=== PATIENT | male | born 1990 | race African-American/Black ===

== ENCOUNTER 2019-06-30 16:30 | Emergency (ER) | payer SELFPAY ==
[2019-06-30 16:35] VITALS: BP 129/71
[2019-06-30] MEDS ORDERED: CEFTRIAXONE INJ 250 MG VIAL IM ONE (16:50)
[2019-06-30] MEDS ORDERED: LIDOCAINE 1% INJ (10 MG/ML) 10 ML MDV INJ ONE (16:51)
[2019-06-30] MEDS ORDERED: AZITHROMYCIN 1 GM SUSP PACKET PO ONE (16:51)
[2019-06-30] MEDS ORDERED: METRONIDAZOLE 500 MG TABLET PO ONE (16:52)
--- NOTE | 2019-06-30 16:55 | ER Document Report ---
HPI - HPI Patient complains to provider of: penile discharge Time Seen by Provider: 06/30/19 16:45 Onset: Other - 4 days Onset/Duration: Waxing and waning Quality of pain: Burning Pain Level: 1 Context: Patient reports some penile discharge with ejaculating that appears to be blood- tinged. Patient states this happened 4 days ago and then again today. Patient concerned about possible STD. Patient denies any dysuria although does report frequency. Associated Symptoms: denies: Fever Exacerbated by: Denies Relieved by: Denies Similar symptoms previously: No Recently seen / treated by doctor: No - ROS ROS below otherwise negative: Yes Systems Reviewed and Negative: Yes All other systems reviewed and negative - CONSTITUTIONAL Constitutional: DENIES: Fever - GASTROINTESTINAL Gastrointestinal: DENIES: Abdominal Pain, Nausea - URINARY Urinary: REPORTS: Frequency. DENIES: Dysuria, Urgency Notes: Penile discharge - REPRODUCTIVE Reproductive: REPORTS: Abnormal bleeding / discharge - MUSCULOSKELETAL Musculoskeletal: DENIES: Back Pain - DERM Skin Color: Normal Skin Problems: None Past Medical History - General Information source: Patient - Social History Smoking Status: Never Smoker Frequency of alcohol use: None Drug Abuse: Marijuana Family History: Reviewed & Not Pertinent - Medical History Medical History: Negative Surgical Hx: Negative Vertical Provider Document - CONSTITUTIONAL Agree With Documented VS: Yes Exam Limitations: No Limitations General Appearance: WD/WN, No Apparent Distress - HEENT HEENT: Atraumatic, Normocephalic - NECK Neck: Normal Inspection, Supple - RESPIRATORY Respiratory: Breath Sounds Normal, No Respiratory Distress - CARDIOVASCULAR Cardiovascular: Regular Rate, Regular Rhythm - GI/ABDOMEN Gastrointestinal: Abdomen Soft, Abdomen Non-Tender - REPRODUCTIVE Male Genitalia: Normal Inspection Notes: No noted discharge, normal cremasteric reflex, no testicular tenderness, no inguinal lymphadenopathy - BACK Back: Normal Inspection. negative: CVA Tenderness-Right, CVA Tenderness-Left - MUSCULOSKELETAL/EXTREMETIES Musculoskeletal/Extremeties: MAEW, FROM - NEURO Level of Consciousness: Awake, Alert, Appropriate Motor/Sensory: No Motor Deficit - DERM Integumentary: Warm, Dry, No Rash Course - Vital Signs Vital signs: Temp Pulse Resp BP Pulse Ox 98.9 F 79 16 129/71 H 100 06/30/19 16:33 06/30/19 16:33 06/30/19 16:33 06/30/19 16:33 06/30/19 16:33 Discharge - Discharge Clinical Impression: Concern about STD in male without diagnosis UTI (urinary tract infection) Qualifiers: Urinary tract infection type: site unspecified Hematuria presence: with hematuria Qualified Code(s): N39.0 - Urinary tract infection, site not specified; R31.9 - Hematuria, unspecified Condition: Stable Disposition: HOME, SELF-CARE Instructions: Azithromycin ([facility]), Metronidazole ([facility]), Rocephin ([facility]), Trimethoprim-Sulfa ([facility]), Urinary Tract Infection ([facility]) Additional Instructions: Return immediately for any new or worsening symptoms Followup with your primary care provider, call tomorrow to make a followup appointment Culture is pending, we will call if you need any different treatment Prescriptions: Sulfamethoxazole/Trimethoprim [Bactrim Ds Tablet] 1 each PO BID #20 tablet [facility] - Follow up as needed
[2019-06-30 17:58] LABS: APPEARANCE,URINE CLEAR; BILIRUBIN,URINE NEGATIVE (NEGATIVE); COLOR,URINE YELLOW; GLUCOSE, URINE NEGATIVE (NEGATIVE); KETONES,URINE NEGATIVE (NEGATIVE); LEUKOCYTE ESTERASE,URINE LARGE (NEGATIVE); NITRITE,URINE NEGATIVE (NEGATIVE); PROTEIN,URINE 30 mg/dL (NEGATIVE); URINE SPECIFIC GRAVITY 1.012; UROBILINOGEN,URINE NEGATIVE mg/dL (<2.0)
[2019-06-30 19:05] LABS: CHLAM PCR DETECTED (NOT DETECT)
== END 2019-06-30 18:10 | disposition home or self-care (01) ==
LOC: ER 16:30
DX: N39.0 Urinary tract infection, site not specified (principal); R36.9 Urethral discharge, unspecified
CPT/HCPCS: 99283; 96372; 87086; 81001; 87491; 87591; Q0144; J0696

== ENCOUNTER 2019-07-10 18:08 | Emergency (ER) | payer SELFPAY ==
[2019-07-10 18:18] VITALS: BP 122/81
--- NOTE | 2019-07-10 18:23 | ER Document Report ---
ED General - General Chief Complaint: Shoulder Pain Stated Complaint: RIGHT SHOULDER PAIN Time Seen by Provider: 07/10/19 18:16 - HPI Notes: Patient is a 28-year-old male who presents to the emergency department for evaluation of right shoulder injury. He states he was trying to break down the door. He denies hitting his head or losing consciousness. No neck or back pain. No numbness or tingling to the right upper extremity. He has no history of injury to the shoulder in the past. - Related Data Allergies/Adverse Reactions: No Known Allergies Allergy (Verified 07/10/19 18:14) Home Medications: Antibiotic for chlamydia, has 3 doses left Past Medical History - General Information source: Patient - Social History Smoking Status: Current Some Day Smoker Drug Abuse: Marijuana Family History: Reviewed & Not Pertinent Patient has homicidal ideation: No Past Surgical History: Reports: Hx Orthopedic Surgery Review of Systems - Review of Systems Musculoskeletal: See HPI -: Yes All other systems reviewed and negative Physical Exam - Vital signs Vitals: Temp Pulse Resp BP Pulse Ox 98.7 F 78 18 122/81 98 07/10/19 18:14 07/10/19 18:14 07/10/19 18:14 07/10/19 18:14 07/10/19 18:14 - Notes Notes: This is a pleasant 28-year-old gentleman appears his stated age, no acute distress. Head is normocephalic and atraumatic, pupils are equal round, reactive to light. Oral mucosa is moist. Heart regular rate and rhythm, lungs are clear to auscultation bilaterally. Examination of the right upper extremity yields no obvious deformity. Patient has active and passive range of motion which is limited secondary to pain to approximately 90 degrees of abduction and flexion. Negative apprehension. Neurovascularly intact to the right upper extremity. Course - Re-evaluation Re-evalutation: 07/10/19 18:22 Patient presents to the emergency department for evaluation. He is concerned that he is dislocated his shoulder. I do not have a high suspicion for this based on his exam at this time. X-ray is ordered. Patient is stable, told to remain n.p.o. We will continue to monitor. 07/10/19 18:37 X-ray fails to reveal any signs of dislocation. Awaiting for official radiology read to rule out any smaller fractures. Patient is administered oral Percocet. Assuming negative x-ray, will send him home with a prescription strength anti- inflammatories and close follow-up. He is to return to the ED with worsening. - Vital Signs Vital signs: Temp Pulse Resp BP Pulse Ox 98.7 F 78 18 122/81 98 07/10/19 18:14 07/10/19 18:14 07/10/19 18:14 07/10/19 18:14 07/10/19 18:14 - Diagnostic Test Radiology reviewed: Image reviewed, Reports reviewed Discharge - Discharge Clinical Impression: Contusion of right shoulder Qualifiers: Encounter type: initial encounter Qualified Code(s): S40.011A - Contusion of right shoulder, initial encounter Condition: Stable Disposition: HOME, SELF-CARE Instructions: Shoulder Injury ([facility]) Additional Instructions: Take medication as prescribed, preferably with food on your stomach. Follow-up with primary care next week. Return to the emergency department for worsening or new concerning symptoms of any sort.
[2019-07-10] MEDS ORDERED: OXYCODONE-ACETAMINOPHEN 5-325 MG TABLET PO ONE (18:37)
--- NOTE | 2019-07-10 18:46 | RADIOLOGY REPORT (SQ) ---
EXAM DESCRIPTION: SHOULDER RIGHT 2 OR MORE VIEWS IMAGES COMPLETED DATE/TIME: 07/10/2019 6:29 pm REASON FOR STUDY: injury COMPARISON: None. NUMBER OF VIEWS: Three views. TECHNIQUE: Internal rotation, external rotation, and Y view images acquired of the right shoulder. LIMITATIONS: None. FINDINGS: MINERALIZATION: Normal. BONES: No acute fracture. No worrisome bone lesions. JOINTS: No dislocation. VISUALIZED LUNGS AND RIBS: No pneumothorax. No rib fracture. SOFT TISSUES: No radiopaque foreign body. OTHER: No other significant finding. IMPRESSION: NEGATIVE STUDY OF THE RIGHT SHOULDER. NO RADIOGRAPHIC EVIDENCE OF ACUTE INJURY. TECHNICAL DOCUMENTATION: JOB ID: [id number] 2010 [employer]- All Rights Reserved Reading location - IP/workstation name: [email or web address]
== END 2019-07-10 19:06 | disposition home or self-care (01) ==
LOC: ER 18:08
DX: S40.011A Contusion of right shoulder, initial encounter (principal); M25.511 Pain in right shoulder; W22.09XA Striking against other stationary object, initial encounter; Y93.89 Activity, other specified; A74.9 Chlamydial infection, unspecified; F17.200 Nicotine dependence, unspecified, uncomplicated; F12.10 Cannabis abuse, uncomplicated
CPT/HCPCS: 99283